=== PATIENT | male | born 1990 | race Caucasian/White ===

== ENCOUNTER 2019-02-17 21:06 | Emergency (ER) | payer MEDICARE, MEDICAID ==
[2019-02-17] MEDS ORDERED: Bacitracin Oint 1 GM U/D Packet TOP ONE (21:47)
--- NOTE | 2019-02-17 21:49 | EDM.PDOC ---
ED HPI GENERAL MEDICAL PROBLEM - General Chief Complaint: Laceration Stated Complaint: LEFT FIRST FINGER LACERATION Time Seen by Provider: 02/17/19 21:35 Source of Information: Reports: Patient History Limitations: Reports: No Limitations - History of Present Illness INITIAL COMMENTS - FREE TEXT/NARRATIVE: 28-year-old male cut his index finger with a broken bottle of hot sauce while trying to make a taco. He has a flap laceration on the ulnar aspect of the distal index finger of the left hand. 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 2nd digit Pain Score (Numeric/FACES): 1 - Related Data Allergies Allergy/AdvReac Type Severity Reaction Status Date / Time No Known Allergies Allergy Verified 02/17/19 21:33 Home Meds: Home Meds NK [No Known Home Meds] 02/17/19 [History] Past Medical History HEENT History: Reports: Impaired Vision Musculoskeletal History: Reports: Fracture, Other (See Below) Other Musculoskeletal History: right wrist fx - Infectious Disease History Infectious Disease History: Reports: Chicken Pox Social & Family History - Tobacco Use Smoking Status *Q: Never Smoker - Caffeine Use Caffeine Use: Reports: Soda - Recreational Drug Use Recreational Drug Use: No ED ROS GENERAL - Review of Systems Review Of Systems: See Below Constitutional: Denies: Fever Respiratory: Reports: No Symptoms Cardiovascular: Reports: No Symptoms GI/Abdominal: Reports: No Symptoms Neurological: Reports: No Symptoms ED EXAM, SKIN/RASH Exam: See Below Exam Limited By: No Limitations General Appearance: Alert, No Apparent Distress, Anxious Respiratory/Chest: No Respiratory Distress Extremities: Other (Remainder of exam is limited to the left hand. The patient has a 2.5 cm flap laceration to the ulnar aspect of the distal index finger just distal to the DIP joint.) Neurological: Alert, Oriented Course - Vital Signs Last Recorded V/S: Last Vital Signs Temp 98.7 F 02/17/19 21:27 Pulse 87 02/17/19 21:27 Resp 16 02/17/19 21:27 BP 145/74 H 02/17/19 21:27 Pulse Ox 97 02/17/19 21:27 - Orders/Labs/Meds Meds: Medications Discontinued Medications Generic Name Dose Route Start Last Admin Trade Name Freq PRN Reason Stop Dose Admin Bacitracin 1 dose 02/17/19 21:47 02/17/19 21:52 Bacitracin Oint 1 Gm TOP 02/17/19 21:48 1 dose ONETIME ONE Administration Lidocaine HCl 5 ml 02/17/19 21:47 02/17/19 21:52 Xylocaine-Mpf 1% INJECT 02/17/19 21:48 5 ml ONETIME ONE Administration - Re-Assessments/Exams Free Text/Narrative Re-Assessment/Exam: 02/17/19 22:13 The area was infiltrated with 1% lidocaine, cleansed thoroughly with saline and 5 5-0 Ethilon sutures were used to close the flap laceration. Topical bacitracin and a Band-Aid was applied, his tetanus is current. Sutures can be removed in 8 days. He can recheck sooner if concerns of infection or not healing satisfactorily. Departure - Departure Time of Disposition: 22:24 Disposition: Home, Self-Care 01 Condition: Good Clinical Impression: Finger laceration Qualifiers: Encounter type: initial encounter Finger: index finger Damage to nail status: without damage Foreign body presence: without foreign body Laterality: left Qualified Code(s): S61.211A - Laceration without foreign body of left index finger without damage to nail, initial encounter - Discharge Information Instructions: Laceration Care, Adult Referrals: Rolf Goldsmith MD [Primary Care Provider] - Forms: ED Department Discharge Care Plan Goals: Keep wound covered and clean while healing. Sutures can be removed in 8 days. Recheck sooner if concerns of infection or not healing satisfactorily. Activity as tolerated.
== END 2019-02-17 22:23 | disposition home or self-care (01) ==
LOC: JP.ED 21:06
DX: S61.211A Laceration without foreign body of left index finger without damage to nail, initial encounter (principal); W26.8XXA Contact with other sharp object(s), not elsewhere classified, initial encounter
CPT/HCPCS: 12001; 99282; J2001